=== PATIENT | male | born 1955 | race Caucasian/White ===

== ENCOUNTER 2019-05-25 11:05 | Inpatient (IN) | payer MEDICARE ==
[~2019-05-25] VITALS: Ht 172.7 cm; Wt 90.9 kg
[2019-05-25 11:30] LABS: Calcium, Ionized (POC) 1.14 mmol/L (1.10-1.46); Chloride (POC) 100 mmol/L (98-108); Creatinine (POC) 0.7 mg/dL (0.8-1.3); Glucose (ISTAT POC) 116 mg/dL (70-99); Hemoglobin (POC) 15.6 g/dL (13.5-17.5); Sodium (POC) 138 mmol/L (135-148); Total CO2 (POC) 23 mmol/L (21-32)
[2019-05-25 11:41] LABS: BASOPHILS ABSOLUTE AUTO 0.02 K/mm3 (0.00-0.23); BASOPHILS PERCENT AUTO 0 % (0-2); EOSINOPHILS ABSOLUTE AUTO 0.04 K/mm3 (0.00-0.68); EOSINOPHILS PERCENT AUTO 0 % (0-6); Hematocrit 44.4 % (37.0-53.0); Hemoglobin 14.9 g/dL (13.5-17.5); IMMATURE GRAN ABSOLUTE AUTO 0.05 K/mm3 (0.00-0.10); IMMATURE GRAN PERCENT AUTO 0 % (0-1); LYMPHOCYTES ABSOLUTE AUTO 1.29 K/mm3 (0.84-5.20); LYMPHOCYTES PERCENT AUTO 9 % (21-46); MONOCYTES ABSOLUTE AUTO 1.06 K/mm3 (0.16-1.47); MONOCYTES PERCENT AUTO 8 % (4-13); Mean Corpuscular HGB 27.9 pg (26.0-34.0); Mean Corpuscular HGB Conc 33.6 g/dL (31.5-36.5); Mean Corpuscular Volume 83 fL (80-100); Mean Platelet Volume 10.7 fL (9.1-12.4); NEUTROPHILS ABSOLUTE AUTO 11.66 K/mm3 (1.96-9.15); NEUTROPHILS PERCENT AUTO 83 % (41-73); Platelet Count 233 K/mm3 (150-400); RDW Standard Deviation 42.5 fL (35.1-46.3); Red Blood Cell Count 5.35 M/mm3 (4.30-5.90); White Blood Cell Count 14.12 K/mm3 (4.00-11.30)
[2019-05-25 11:59] LABS: Alanine Aminotransfer (ALT/SGP 26 U/L (12-78); Albumin, Blood 3.9 g/dL (3.4-5.0); Alk Phos 59 U/L (50-136); Anion Gap 11 mmol/L (6-16); Aspartate Aminotrans (AST/SGOT 15 U/L (12-37); Bilirubin, Total 1.3 mg/dL (0.1-1.0); Blood Urea Nitrogen 17 mg/dL (8-24); Bun/Creatinine Ratio 22.4 (12.0-20.0); CO2, Blood 24 mmol/L (21-32); Calcium, Blood 9.1 mg/dL (8.5-10.1); Chloride, Blood 102 mmol/L (98-108); Creatinine, Blood 0.76 mg/dL (0.60-1.20); Ethanol (Alcohol), Blood, Med <3 mg/dL; Glomerular Filtration Rate >60 (60-); Glucose, Blood 110 mg/dL (70-99); Sodium, Blood 137 mmol/L (136-145); Total Protein, Blood 7.9 g/dL (6.4-8.2)
[2019-05-25] MEDS ORDERED: CLON.5 PO (13:10)
[2019-05-25 15:17] LABS: Source, Urine Clean Catch
[2019-05-25 15:54] LABS: Bilirubin, Urine Neg (Neg); Blood, Urine 4+ (Neg); Glucose Qualitative, Urine Neg (Neg); Ketones, Urine 4+ (Neg); Leukocyte Esterase, Urine Neg (Neg); Nitrite, Urine Neg (Neg); Protein, Urine 1+ (Neg); Specific Gravity, Urine 1.025 (1.003-1.022); Urobilinogen, Urine NORM (Normal)
[2019-05-25 16:21] LABS: U Amphetamine Screen Not Detected; U Barbituate Screen Not Detected; U Benzodiazapine Screen Not Detected; U Buprenorphine Screen Not Detected; U Cannabinoids Screen Not Detected; U Cocaine Screen Not Detected; U Methadone Screen Not Detected; U Methamphetamine Screen Not Detected; U Opiates Screen Not Detected; U Oxycodone Screen Not Detected; U Phencyclidine Screen Not Detected; U Propoxyphene Screen Not Detected
[2019-05-25 16:27] LABS: Appearance, Urine Clear (Clear); Color, Urine Yellow (P-Yellow)
[2019-05-25 16:28] LABS: Bacteria Few /hpf; Hyaline Casts 0-2 /lpf (0-2); Red Blood Cells, Urine 25-50 /hpf (0-2); Squamous Epithelial Cells Not Seen /hpf (Few); White Blood Cells, Urine 0-2 /hpf (0-5)
[2019-05-25] MEDS ORDERED: AMIT75 PO (20:57)
--- NOTE | 2019-05-25 21:37 | NUR ---
PTS CIWA SCORE 37, PT CONTINUES TO REMOVE RESTRAINTS AND MOVE AROUND IN BED AND IS NON REDIRECTABLE, Miguelina JANSEN NP CALLED WITH ORDERS TO MOVE ICU CHANTELL.
--- NOTE | 2019-05-25 23:00 | NUR ---
PT TO ICU 5 FROM PCU 9. PT ARRIVES TO UNIT IN 4-POINT SOFT RESTRAINTS AND CORRY. PT IS CONTINUOUSLY PULLING AGAINST RESTRAINTS AND TALKING NONSENSICALLY. PT ABLE TO TELL ME HIS DATE OF ON ARRIVAL BUT WAS UNABLE TO RECALL HIS NAME. PT KNEW MONTH WAS "MAY" AND THAT IT WAS "2018" BUT THOUGHT THAT HE WAS "IN [place] AT A [employer]". PT'S BEHAVIOR IS EXTREMELY LABILE. PT STATES THIS NURSE "LOOKS LIKE SISTER MELA" AND BEGINS TO HAVE FULL CONVERSATIONS WITH IMAGINARY PEOPLE. PT IS ABLE TO HAVE FLUID AND CONCRETE CONVERSATION AND QUICKLY BECOME CONFUSED AND EXPERIENCE VISUAL/AUDITORY HALLUCINATIONS. PT STATES THAT HE DRINKS "A COUPLE TIMES A YEAR", PT REMEMBERS THAT HIS SISTER "A FEW WEEKS AGO", PT DENIES TAKING PILLS, DRUGS OR ALCOHOL. ALL VSS AT THIS TIME. PT STARTED ON PRECEDEX GTT TO DECREASE AGITATION. CURRENT CIWA SCORE 36 D/T HALLUCINATIONS. SEE FULL SHIFT ASSESSMENT
[2019-05-25 23:59] LABS: Source, Urine Catheter
[2019-05-26 00:07] LABS: Appearance, Urine Clear (Clear); Bilirubin, Urine Neg (Neg); Blood, Urine 5+ (Neg); Color, Urine Amber (P-Yellow); Glucose Qualitative, Urine Neg (Neg); Ketones, Urine 4+ (Neg); Leukocyte Esterase, Urine 1+ (Neg); Nitrite, Urine Neg (Neg); Protein, Urine 2+ (Neg); Urobilinogen, Urine 1+ (Normal)
[2019-05-26 00:14] LABS: Red Blood Cells, Urine TNTC /hpf (0-2); Squamous Epithelial Cells Not Seen /hpf (Few)
[2019-05-26 00:15] LABS: Bacteria Many /hpf
[2019-05-26 03:24] LABS: BASOPHILS ABSOLUTE AUTO 0.02 K/mm3 (0.00-0.23); BASOPHILS PERCENT AUTO 0 % (0-2); EOSINOPHILS ABSOLUTE AUTO 0.08 K/mm3 (0.00-0.68); EOSINOPHILS PERCENT AUTO 1 % (0-6); Hemoglobin 12.2 g/dL (13.5-17.5); IMMATURE GRAN ABSOLUTE AUTO 0.03 K/mm3 (0.00-0.10); IMMATURE GRAN PERCENT AUTO 0 % (0-1); LYMPHOCYTES ABSOLUTE AUTO 1.76 K/mm3 (0.84-5.20); LYMPHOCYTES PERCENT AUTO 16 % (21-46); MONOCYTES PERCENT AUTO 9 % (4-13); Mean Corpuscular HGB 27.9 pg (26.0-34.0); Mean Corpuscular Volume 85 fL (80-100); Mean Platelet Volume 10.7 fL (9.1-12.4); NEUTROPHILS ABSOLUTE AUTO 8.26 K/mm3 (1.96-9.15); NEUTROPHILS PERCENT AUTO 74 % (41-73); Platelet Count 177 K/mm3 (150-400); RDW Coefficient Variation 13.9 % (11.7-14.2); RDW Standard Deviation 43.1 fL (35.1-46.3); Red Blood Cell Count 4.38 M/mm3 (4.30-5.90); White Blood Cell Count 11.15 K/mm3 (4.00-11.30)
[2019-05-26 03:45] LABS: Anion Gap 5 mmol/L (6-16); Blood Urea Nitrogen 13 mg/dL (8-24); Bun/Creatinine Ratio 19.8 (12.0-20.0); CO2, Blood 27 mmol/L (21-32); Calcium, Blood 8.2 mg/dL (8.5-10.1); Chloride, Blood 108 mmol/L (98-108); Creatinine, Blood 0.66 mg/dL (0.60-1.20); Glomerular Filtration Rate >60 (60-); Glucose, Blood 116 mg/dL (70-99); Potassium, Blood 3.6 mmol/L (3.5-5.5); Sodium, Blood 140 mmol/L (136-145)
--- NOTE | 2019-05-26 06:09 | NUR ---
SHIFT SUMMARY PT SLEPT SOUNDLY OVERNIGHT. PT REMAINS IN RESTRAINTS TO PREVENT PULLING ON LINES/CORDS AND ATTEMPTING TO UNSAFELY AMBULATE. PRECEDEX GTT @ 0.4 MCG/KG/HR. PT ALERT TO VERBAL STIMULI BUT REMAINS CONFUSED. PT IMMEDIATELY BEGINS SPEAKING NONSENSICAL UPON STIMULATION. VITAL SIGNS REMAIN STABLE. WILL REPORT TO DAYSHIFT NURSE.
--- NOTE | 2019-05-26 09:31 | NUR ---
ASSUMED CARE / DR SOLIS: REPORT RECEIVED FROM ASHLEY Bhardwaj RN. ASSUMED CARE OF THIS PT AT APPROX 0700. ON ASSESSMENT, THE PT IS RESTING QUIETLY. PRECEDEX INFUSING AT 0.4 MCG/KG/HR. PT AWAKENS EASILY TO VERBAL STIMULI & ANSWERS SOME QUESTIONS, BUT BEGINS TO HALLUCINATE SOON AFTER WAKING. HE IS HAVING BOTH VISUAL & AUDITORY HALLUCINATIONS AT THIS TIME & HAVING CONVERSATIONS W/ PERSONS THAT ARE NOT PRESENT. ASSESSMENT CHARTED, VSS. CIWA CHARTED. PROVIDER AT BEDSIDE TO SEE PT. STS TO TITRATE PRECEDEX ABLE. IF PT FULLY AWAKENS & IS ABLE TO TOLERATE PO INTAKE, DIET MAY BE ADVANCED TOLERATED. WILL CONTINUE TO MONITOR & UPDATE NEEDED.
--- NOTE | 2019-05-26 10:19 | NUR ---
DR SOLIS: CALL TO PROVIDER TO NOTIFY HIM THAT PT IS NOW A&O x4. SOFT RESTRAINTS x4 EXT HAVE BEEN REMOVED AT 1000. CORRY VEST REMAINS IN PLACE. PROVIDER STS TO PLACE PRECEDEX ON STANDBY, IF PT TOLERATES WELL, OKAY TO MAKE MEDICAL STATUS THIS AFTERNOON. PT STS HAVING CHRONIC BACK PAIN, TYLENOL IS ORDERED. WILL CONTINUE TO MONITOR & UPDATE NEEDED.
--- NOTE | 2019-05-26 11:24 | NUR ---
MEDICATION RECONCILLIATION: MEDS VERIFIED W/ [facility] IN [place], [place]. PT ALSO STS TAKING OXYCODONE 10MG TID FOR BACK PAIN, BUT THIS SCRIPT HAS NOT BEEN FILLED BY [facility]. PT NORMALLY RESIDES IN [place], [place].
--- NOTE | 2019-05-26 12:25 | NUR ---
Per admit trigger, I met with Mr. Wilson to offer spiritual encouragement and prayer. He tells me his sister last week. She was on hospice and he cared for her in her final weeks. She was an older sister and "like a mom" to Mr. Wilson. He attributes this hospitalization/illness to grief and asked for information regarding bereavement benefits counselor/support. Mr. Wilson lives in [place]. All of his siblings and friends are there. He will be staying in [place] to settle his sister's affairs and sell her home. I provided information on grief support groups and my contact information for benefits counselor. He allowed me to pray for him at bedside. Mr. Wilson beleives he will heal and is open to help/support. I will remain available.
--- NOTE | 2019-05-26 15:41 | NUR ---
TRANSFER TO MED FLOOR: REPORT HAS BEEN GIVEN TO SHARAD Fernandez RN TO ASSUME CARE ON MED FLOOR. PT HAS BEEN TRANSFERRED TO RM 349, CHART & ALL BELONGINGS HAVE BEEN TAKEN UP W/ PT. RN ASSUMING CARE DENIES FURTHER QUESTIONS.
--- NOTE | 2019-05-26 16:13 | NUR ---
PT ARRIVED TO THE UNIT VIA WHEELCHAIR. PT ORIENTATED TO ROOM. PT DENIES CHEST PAIN AT THIS TIME. RESPRATIONS ARE EVEN AND UNLABORED, LUNG SOUNDS ARE CLEAR. PT IS A LITTLE UNSTEADY ON HIS FEET DURING TRANSFER TO BED.
--- NOTE | 2019-05-27 05:09 | NUR ---
SHIFT SUMMARY- PT. A&OX3, PLEASANT AND COOPERATIVE WITH CARE. C/O CHRONIC BACK PAIN. PAIN MED GIVEN 1X PER EMAR. PT. NOTED TO HAVE GOOD RELIEF. DURING EARLY AM VITALS NOTED BP AND HR TO BE ELEVATED. PT. STATED FELT A LITTLE ANXIOUS. KLONOPIN PRN GIVEN PER EMAR. RECHECK OF BP WNL, HR STILL IN THE 120'S. PT. ASYPMTOMATIC, STATES FEELS FINE. CHARGE NURSE PABLO KWONG MADE AWARE. IV FLUIDS RUNNING. WILL CONT TO MONITOR HR. CALL LIGHT WITHIN REACH AND SIDE RAILS UPX2
--- NOTE | 2019-05-27 06:51 | NUR ---
NOTIFIED DR. ROJO RE ELEVATED HR= 124-128, WITH NO KNOWN HX OF AFIB/TACHYCARDIA. MADE HIM AWARE PT. IS ASYMPTOMATIC AND OTHER VSS. PHYSICIAN INSTRUCTED THIS NURSE TO CONT TO MONITOR PT. AND REPORT TO ONCOMING AM NURSE TO ORDER EKG IF CONTINUED ELEVATED HR. REPORT GIVEN TO AM NURSE AND MADE AWARE OF PHYSICIAN INSTRUCTIONS.
[2019-05-27 11:58] LABS: Source, Urine Clean Catch
[2019-05-27 12:03] LABS: Bilirubin, Urine Neg (Neg); Blood, Urine Neg (Neg); Glucose Qualitative, Urine Neg (Neg); Ketones, Urine 2+ (Neg); Leukocyte Esterase, Urine 1+ (Neg); Nitrite, Urine Neg (Neg); Protein, Urine Neg (Neg); Specific Gravity, Urine 1.005 (1.003-1.022); Urobilinogen, Urine NORM (Normal)
[2019-05-27 12:18] LABS: Appearance, Urine Clear (Clear); Color, Urine Yellow (P-Yellow)
[2019-05-27 12:20] LABS: Bacteria Rare /hpf; Red Blood Cells, Urine 0-2 /hpf (0-2); Squamous Epithelial Cells Rare /hpf (Few)
--- NOTE | 2019-05-27 12:23 | NUR ---
PT PULSE WAS INCREASED EARLY THIS MORNING. PT ALSO HAD AN ELEVATED TEMP WITH MORNING VITAL. PT HAS PROGRESSIVLY BECOME INCREASINGLY SHAKY DURING THIS SHIFT. SPOKE WITH DR. YUAN THIS MORNING AFTER VITALS AND HE ORDERED A UA, AND FLUID BOLUS. VITALS RETAKEN AFTER BOLUS AND TEMPRATURE REMAINED ELEVATED AND CONTINUED TO HAVE TACYCARDIA, ALTHOUGH SLIGHTLY IMPROVED FROM THIS MORNING. PT ALSO DECLINED LUNCH DR. YUAN NOTIFIED OF PT CONDITION, ORDERED BLOOD CULTURE AND LACTIC ACID LEVELS STAT, AND ANTIBIOTICS. UA WAS COLLECTED AND SENT. AWAITING LAB FOR BLOOD WORK TO BE DRAWN.
--- NOTE | 2019-05-27 14:27 | NUR ---
PT'S FEVER HAS DECREASED, TREMORS HAVE DECREASED, AND IS CURRENTLY RESTING.
--- NOTE | 2019-05-27 17:19 | NUR ---
CRITICAL LAB VALUE OF LACTIC ACID 2.7. NOTIFIED PROVIDER, AWAITING ORDERS. NOTIFIED PROVIDER OF PT TEMPRATURE OF 102.2.
--- NOTE | 2019-05-27 18:34 | NUR ---
SHIFT SUMMARY- PT A/O, COOPERATIVE, AND PLESANT. PT HAD AN INCREASED PULSE, AND ELEVATED TEMP. LACTIC ACID LEVELS DRAWN AND WERE ELEVATED. ORDERS WERE GIVEN AND ADMINISTERED. TYLENOL WAS GIVEN TWICE THIS SHIFT FOR FEVER. THIS MORNING PT HAD TREMORS, WHICH DECREASED THIS AFTERNOON. PT REPORTS FEELING BETTER THIS EVENING, AND LACTIC ACID LEVELS DECREASED WITH AFTERNOON LABS.
[2019-05-27 22:07] LABS: Adenovirus Not Detected (NOT DETECT); Bordetella pertussis Not Detected (NOT DETECT); Chlamydophila pneumoniae Not Detected (NOT DETECT); Coronavirus 229E Not Detected (NOT DETECT); Coronavirus HKU1 Not Detected (NOT DETECT); Coronavirus NL63 Not Detected (NOT DETECT); Coronavirus OC43 Not Detected (NOT DETECT); Human Metapneumovirus Not Detected (NOT DETECT); Human Rhinovirus/Enterovirus Not Detected (NOT DETECT); Influenza A Not Detected (NOT DETECT); Influenza A/2009-H1 Not Detected (NOT DETECT); Influenza A/H1 Not Detected (NOT DETECT); Influenza A/H3 Not Detected (NOT DETECT); Influenza B Not Detected (NOT DETECT); Mycoplasma pneumoniae Not Detected (NOT DETECT); Parainfluenza Virus 1 Not Detected (NOT DETECT); Parainfluenza Virus 2 Not Detected (NOT DETECT); Parainfluenza Virus 3 Not Detected (NOT DETECT); Parainfluenza Virus 4 Not Detected (NOT DETECT); Respiratory Syncytial Virus Not Detected (NOT DETECT)
--- NOTE | 2019-05-28 04:04 | NUR ---
TEMP 101.3. CALL PLACED TO MD TO INFORM,
--- NOTE | 2019-05-28 04:46 | NUR ---
LABORER LANDSCAPE SUMMARY Patient slept well throughout night with exception of getting up several times to urinate. Pt output unsaved first part of shift so I&O balance is off. Patient had temp of 101.3 at 0320, and was given tylenol for fever. highest CIWA was 5 around midnight, then patient went to sleep. woke just before that rather confused, diaphoretic and more tremulous than earlier in the evening. Temperature on recheck was
--- NOTE | 2019-05-28 06:39 | NUR ---
YESTERDAYS BLOOD CULTURE RESULTS: 4 BOTTLES GRAM+ COCCI WITH CHAINS
--- NOTE | 2019-05-28 07:30 | NUR ---
PT QUITE PLEASANT COOP A.O. DENIES PAIN AT THIS TIME. ADMITS CHRONIC PAIN LOW BACK. OKAY AT THIS TIME. WILL MONITOR. H/R REG, NO MURMER NOTE. NO TELE. LUNGS CLEAR, RESP EASY, UNLABORED. ON R/A. BT X4 ALST BM 2 DAYS. PT STATES NORMAL. VOIDS PER URINAL . INDEPENDANT TO BATHROOM, BED IN LOW POSTION, CALL LITE IN REACK, CALLS APROP.
[2019-05-28 12:36] LABS: Hematocrit 33.3 % (37.0-53.0); Hemoglobin 11.2 g/dL (13.5-17.5); Mean Corpuscular HGB 28.2 pg (26.0-34.0); Mean Corpuscular HGB Conc 33.6 g/dL (31.5-36.5); Mean Corpuscular Volume 84 fL (80-100); Mean Platelet Volume 10.5 fL (9.1-12.4); Platelet Count 95 K/mm3 (150-400); RDW Coefficient Variation 14.2 % (11.7-14.2); RDW Standard Deviation 43.9 fL (35.1-46.3); Red Blood Cell Count 3.97 M/mm3 (4.30-5.90); White Blood Cell Count 10.18 K/mm3 (4.00-11.30)
[2019-05-28 12:50] LABS: Anion Gap 7 mmol/L (6-16); Blood Urea Nitrogen 11 mg/dL (8-24); Bun/Creatinine Ratio 15.2 (12.0-20.0); CO2, Blood 26 mmol/L (21-32); Calcium, Blood 8.4 mg/dL (8.5-10.1); Chloride, Blood 105 mmol/L (98-108); Creatinine, Blood 0.72 mg/dL (0.60-1.20); Glomerular Filtration Rate >60 (60-); Glucose, Blood 96 mg/dL (70-99); Potassium, Blood 2.8 mmol/L (3.5-5.5); Sodium, Blood 138 mmol/L (136-145)
--- NOTE | 2019-05-28 17:03 | NUR ---
PT PLEASANT COOP A/O. QUITE TALKATIVE. PAIN AND ANX MANAGED WITH [facility]. SPOKE TO DR ESCALATNE BLOOD LEVELS DROPPED ON LAST CHECK. DR REPLENISHING K+, STATES MAY BE DILUTION RELATED. KEEPING IVF GOING AT THIS POINT. NO OTHER CONCERNS AT THIS TIME. BED IN LOW POSITION, CALL LITE IN REACH, CALLS APPROP
--- NOTE | 2019-05-28 22:48 | NUR ---
PATIENT ALERT AND ORIENTED AND INDEPENDENT IN ROOM. DENIES PAIN, N/V AND SOB. KLONOPIN GIVEN FOR ANXIETY PER EMAR. LR INFUSING AT 150 mL/HR. CALL LIGHT IN REACH.
--- NOTE | 2019-05-28 23:41 | NUR ---
[facility]ER[facility] TECH REPORTS PATIENT TRYING TO EXIT BED. BED ALARM ACTIVATED. LEGS OFF SIDE OF BED. PATIENT LEGS PLACED BACK INTO BED. PATIENT REMINDED TO USE CALL LIGHT. CALL LIGHT IN REACH. WILL CONTINUE TO MONITOR.
--- NOTE | 2019-05-29 03:42 | NUR ---
SHIFT SUMMARY PATIENT HAD NO ACUTE CHANGES OBSERVED. AXO X3 AND INDEPENDENT IN ROOM. USES URINAL AT BS. DENIES SOB AND N/V. REPORTED LOW BACK PAIN X ONE AND RECEIVED OXYCODONE 10 MG PER EMAR. PIV REMAINS INTACT. LR INFUSING AT 150 mL/HR. IV ABXS INFUSED. VISITORS AT SHIFT CHANGE. ON RA AND CONTINUOUS PULSE OXIMETRY STATING 98%. COOPERATIVE WITH CARE. CALL LIGHT IN REACH. BED IN LOWEST POSITION. WILL CONTINUE TO MONITOR UNTIL DAY SHIFT NURSE ASSUMES CARE.
[2019-05-29 08:36] LABS: Anion Gap 5 mmol/L (6-16); Blood Urea Nitrogen 8 mg/dL (8-24); Bun/Creatinine Ratio 10.1 (12.0-20.0); CO2, Blood 29 mmol/L (21-32); Calcium, Blood 8.1 mg/dL (8.5-10.1); Chloride, Blood 103 mmol/L (98-108); Creatinine, Blood 0.79 mg/dL (0.60-1.20); Glomerular Filtration Rate >60 (60-); Glucose, Blood 103 mg/dL (70-99); Potassium, Blood 3.3 mmol/L (3.5-5.5); Sodium, Blood 137 mmol/L (136-145)
--- NOTE | 2019-05-29 11:08 | NUR ---
CHARTING INDICATES IV TO L FA AND SABINE, THESE IV'S NOT PRESENT, IV TO R FA PRESENT AND PATENT. VASCULAR ACCESS MANAGEMENT CHARTING COMPLETED TO REFLECT THIS. UNKOWN INSERTION DATE.
--- NOTE | 2019-05-29 18:28 | NUR ---
SHIFT ASSESSMENT: AOX4, IND IN ROOM. PATIENT DENIES N/V & SOB. PATIENT W/CHRONIC PAIN MANAGED W/CURRENT ORDERS. PATIENT RECEIVED SHOWER. DISCHARGE PENDING CULTURE RESULTS PER DR. YUAN. NO CHANGES OR CONCERN.
--- NOTE | 2019-05-30 05:00 | NUR ---
PHARMACIST IN CHARGE SUMMARY PT A/O X4. SLEPT WELL THROUGHOUT THE NIGHT. USES URINAL AT BEDSIDE. PT COOPERATIVE AND PLEASANT. ANTIBIOTICS GIVEN. LR RUNNING CONINTUOUSLY BETWEEN ANTIBIOTICS. BLOOD PRESSURE 158/106 EARLY THIS MORNING. PT COMPLAINED OF LOW BACK PAIN 02/20. MEDICATED PER EMAR. PT STATED PAIN IS COMING DOWN AFTER BEING MEDICATED. WILL CONTINUE TO MONITOR VITAL SIGNS.
[2019-05-30 05:07] LABS: Anion Gap 7 mmol/L (6-16); Blood Urea Nitrogen 10 mg/dL (8-24); Bun/Creatinine Ratio 13.4 (12.0-20.0); CO2, Blood 28 mmol/L (21-32); Chloride, Blood 105 mmol/L (98-108); Creatinine, Blood 0.75 mg/dL (0.60-1.20); Glomerular Filtration Rate >60 (60-); Glucose, Blood 93 mg/dL (70-99); Potassium, Blood 3.4 mmol/L (3.5-5.5); Sodium, Blood 140 mmol/L (136-145)
[2019-05-30] MEDS ORDERED: OXYC5 PO (10:09)
[2019-05-30] MEDS ORDERED: Vsl#3 Capsule1 EACH PO (10:10)
[2019-05-30] MEDS ORDERED: LEVFLO500 PO (10:10)
--- NOTE | 2019-05-30 11:19 | NUR ---
1048 PT DISCHARGED HOME VIA PERSONAL VEHICLE ACCOMPANIED AND DRIVEN FRIEND. PT ESCORTED TO ENTRANCE VIA W/C BY THIS RN. IV REMOVED. NEW RX FAXED TO [facility] [address], 2 HARD SCRIPTS SENT WITH PT. D/C PAPERWORK REVIEWED WITH PT AND COPY PROVIDED. NO NEW CHANGES OR CONCERNS.
== END 2019-05-30 10:48 | disposition home or self-care (01) | DRG 871 ==
LOC: DELPENDDIS → ER 11:05 → ICUE 11:06 → ERHOLD 11:06 → PCU 20:55 → ICUE 22:15 → MEDS 05-26 15:50 → ENPENDDIS 05-27 12:47 → MEDS 05-28 12:27
PROVIDERS: Emergency Medicine; Internal Medicine; Nurse Practitioner Acute Care; ADMIT Internal Medicine
DX: A41.81 Sepsis due to Enterococcus (principal); R65.21 Severe sepsis with septic shock; N39.0 Urinary tract infection, site not specified; G93.40 Encephalopathy, unspecified; F10.239 Alcohol dependence with withdrawal, unspecified; E87.2 Acidosis; E87.6 Hypokalemia
CPT/HCPCS: 0099U; 36415; 51701; 51703; 70450; 71045; 71046; 80047; 80048; 80053; 81001; 83605; 85014; 85025; 85027; 87040; 87077; 87086; 87186; 93005; 93010; 94762; 96361; 96365; 96366; 96367; 96372-59; 96375; 96376; 99285-25; A9270; G0378; G0480; J0290; J0696; J2060; J2543; J3411; J3475; J3480; J7030; J7042; J7050; J7120

== ENCOUNTER 2019-06-03 09:51 | Emergency (ER) | payer MEDICARE ==
[~2019-06-03] VITALS: Ht 175.3 cm; Wt 86.2 kg
[~2019-06-03 09:51] MED LIST: AMIT75 PO; CLON.5 PO; LEVFLO500 PO; OXYC5 PO; Vsl#3 Capsule1 EACH PO
--- NOTE | 2019-06-03 10:14 | NUR ---
THIS LITHOGRAPHER HELPER TRIED TO CALL JULIO IN THE ED TO INFORM HER THAT THIS PATIENT WAS GIVEN INFORMATION ON HOW TO GO TO THE PHARMACY AND TO [facility] TO GET HIS MEDICATIONS (CLONIPIN). HE VERBALLAY REPORTED "I KNOW WHERE THAT IS". HE VERBALIZED HE KNOW THAT HE WAS TO GO TO THE 3RD FLOOR TO [place] AND REQUEST A PACKET. HE MENTIONED HE HAD AN APPOINTMENT FOR AN ASSESSMENT FOR THERAPY. HE WAS EDUCATED ON THE SERVICES [facility] PROVIDES WELL [facility] AND [facility]. THIS LITHOGRAPHER HELPER LEFT A Sheri.Hugo PERALTA IN THE ED ON TH CUSTOMER SERVICE REPRESENTATIVE DESK PHONE.
[2019-06-03] MEDS ORDERED: Clonazepam0.5 MG (11:52)
== END 2019-06-03 12:20 | disposition home or self-care (01) ==
LOC: ER 09:51
DX: F13.10 Sedative, hypnotic or anxiolytic abuse, uncomplicated (principal); F41.9 Anxiety disorder, unspecified; Z79.899 Other long term (current) drug therapy
CPT/HCPCS: 99281